=== PATIENT | female | born 1930 | race Caucasian/White ===

== ENCOUNTER 2016-12-07 08:06 | Emergency (ER) | payer MEDICARE, BC ==
[2016-12-07 08:23] VITALS: BP 113/73
--- NOTE | 2016-12-07 08:35 | UC ---
Throat Pain/Nasal Aydin HPI - HPI Summary HPI Summary: pt here with her daughter. Pt has had sore mouth and swollen glands in her neck x 9 days. Saw her PCP (an [employer] MAINTAINER SECTION this time, not the MD) and was started on "magic mouthwash". Pt states she tried at least 6 doses of this without any relief. Also has VEGA above both eyes that she rates a 6, unrelieved with ibuprofen taken at 6am today. Pt states tylenol does not work for her. Pt also notes swelling/ bump on her upper lip and her upper mouth. Pt wears dentures an has taken out her dentures the last few days. Pt has tried H2O2 after the magic mouthwas did not work. Pt has new diagnosis of what they believe is State 1 lung CA. Daughter states she had a PTX after the biopsy for this. Had sepsis and legionella at this time , in Oct 2016. This was the last time pt had antibiotics. Pt is under the care of the [facility] and has met with them to discuss her care plan but she has not started treatment yet. She is due for a PET scan on 12/09/16. - History of Current Complaint Chief Complaint: UCGeneralIllness Stated Complaint: SORE MOUTH,SWOLLEN GLANDS Time Seen by Provider: 12/07/16 08:27 Hx Obtained From: Patient, Family/[employer] - daughter Onset/Duration: Gradual Onset, Lasting Days, Still Present Severity: Moderate Pain Intensity: 6 Pain Scale Used: 0-10 Numeric Cough: None Associated Signs & Symptoms: Positive: Dysphagia, Other - sore mouth, swelling upper lip and under jaw, Related History: Seasonal Allergies - Epiglottits Risk Factors Epiglottis Risk Factors: Negative - Allergies/Home Medications Allergies/Adverse Reactions: Allergies Allergy/AdvReac Type Severity Reaction Status Date / Time Clavulanic Acid AdvReac Vomiting Verified 12/07/16 08:12 Home Medications: Home Medications Cholecalciferol TAB* [Vitamin D TAB*] 2,000 units PO DAILY 12/07/16 [History Confirmed 12/07/16] Ibuprofen TAB* [Advil TAB*] 600 mg PO Q6H PRN 12/07/16 [History Confirmed ] Levothyroxine TAB* [Synthroid TAB*] mcg PO DAILY 12/07/16 [History] PMH/Surg Hx/FS Hx/Imm Hx Endocrine History Of: Reports: Thyroid Disease - Hypothyroidism - Surgical History Surgical History: Yes Surgery Procedure, Year, and Place: Cholecystectomy, ~2005, [place] - Family History Known Family History: Positive: Other - cancer - Social History Occupation: Retired Alcohol Use: None Substance Use Type: None Smoking Status (MU): Former Smoker When Did the Patient Quit Smoking/Using Tobacco: ~1996 - Immunization History Most Recent Influenza Vaccination: August 2016 Review of Systems Constitutional: Fatigue Skin: Negative Eyes: Negative ENT: Other - mouth pain, swollen glands under jaw Respiratory: Negative Cardiovascular: Negative Gastrointestinal: Negative Genitourinary: Negative Motor: Negative Neurovascular: Negative Musculoskeletal: Arthralgia - neck pain Neurological: Headache Psychological: Negative All Other Systems Reviewed And Are Negative: Yes Physical Exam Triage Information Reviewed: Yes Appearance: Well-Appearing, Well-Nourished, Pain Distress Vital Signs: Initial Vital Signs Temp 97.7 F 12/07/16 08:09 Pulse 104 12/07/16 08:09 Resp 16 12/07/16 08:09 BP 113/73 12/07/16 08:09 Pulse Ox 95 12/07/16 08:09 Vital Signs Reviewed: Yes Eyes: Positive: Conjunctiva Clear ENT: Positive: Hearing grossly normal, Pharyngeal erythema, TMs normal, Other: - salivary glands not palpable, no white plaquing noted Dental: Positive: Other: - edentulous, pinpoint red area on upper post hard palate Neck: Positive: Supple, Nontender, No Lymphadenopathy - no palpable nodes, although pt states her neck is tender in the area of posterior cervical nodes Respiratory: Positive: Lungs clear, Normal breath sounds, No respiratory distress Cardiovascular: Positive: RRR, No Murmur, Pulses Normal, Brisk Capillary Refill Musculoskeletal: Positive: Strength Intact, ROM Intact Neurological: Positive: Alert, Muscle Tone Normal Psychological Exam: Normal Skin: Negative: significant lesion(s) Throat Pain/Nasal Course/Dx - Course Course Of Treatment: rapid A neg. routine throat culture (full) sent, asking to hold for yeast - Differential Dx/Diagnosis Differential Diagnosis/HQI/PQRI: Pharyngitis, Sinusitis, Other - stomatitis, oral candidiasis Provider Diagnoses: stomatitis. cephalgia Discharge - Discharge Plan Condition: Stable Disposition: HOME Prescriptions: Nystatin SUSPENSION* 500,000 units .SEE ORDER QID #140 ml Patient Education Materials: Oral Candidiasis (ED) Referrals: Hamzah Pruitt MD [Primary Care Provider] - Additional Instructions: Your strep test was negative. This is a DNA method of testing and very accurate , so Dr. Yeh does not recommend an antibiotic at this time. Dr. Yeh recommends that you try L-Lysine that you can buy in the vitamin section of a pharmacy, for the mouth soreness. It is an amino acid, that is in your body already, so you will not be allergic to it. You may try 1000mg orally daily for one week to see if it helps with the mouth soreness. Dr. Yeh recommends that you be cautious with peroxide as it can be very strong and not allow tissue healing. But she does recommend good oral hygiene and not wearing your dentures until this resolves. Dr. Yeh has sent a throat culture that will see if any bacteria or yeast grow from your mouth today. We will contact you if you need further treatment based on these results. You may call us if you haven't heard anything in [address] Yeh is going to treat you for possible thrush (oral candidiasis/yeast) with nystatin, although she does not see evidence of yeast in your mouth at this time. Dr. Yeh is aware that you have a headache and a sore neck and you feel swelling under your jaw and of your upper lip, but she does not feel swollen lymph nodes or salivary glands inflamed at this time. You have frontal sinus tenderness on palpation, but you do not have any other signs of a sinus infection, so she is not recommending an antibiotic at this time. She recommends that you take acetaminophen (tylenol) for the pain, even though you feel it hasn't worked for you in the past. You may also take ibuprofen sparingly for pain, with food, and as directed by the Cancer Center. You may try some normal saline nasal spray up your nose 4 times a day, to keep the nasal passages moist, and allow you to clear any secretions. Dr. Yeh recommends that you see your regular doctor, or the Cancer Center doctors as soon as possible, so that they know you are having this persistent mouth discomfort and swelling and the headache. Go to the ER if you have any worsening symptoms.
[2016-12-07] MEDS ORDERED: Acetaminophen TAB* 325 MG PO ONE (09:20)
== END 2016-12-07 09:29 | disposition home or self-care (01) ==
LOC: UCCORT 08:06
DX: K12.1 Other forms of stomatitis (principal); E03.9 Hypothyroidism, unspecified; Z85.118 Personal history of other malignant neoplasm of bronchus and lung; Z87.891 Personal history of nicotine dependence; Z88.1 Allergy status to other antibiotic agents
CPT/HCPCS: 87070; 87651; 99202; A9270-GY; G0463